=== PATIENT | female | born 1970 | race Caucasian/White ===

== ENCOUNTER 2019-05-11 19:34 | Emergency (ER) | payer BC ==
[2019-05-11 20:27] VITALS: BP 110/71
--- NOTE | 2019-05-11 21:39 | UC ---
FLU HPI - HPI Summary HPI Summary: 49-year-old female presenting with fever, cough, body aches, and decreased appetite 3 days. Patient states she is beginning to feel better and "quite honestly just needs a note to return to work." Patient states she self diagnosed herself with the flu 3 days ago. States symptoms are gradually improving. States her fever broke today. Did have fevers up to 102. Denies nausea and vomiting. Denies shortness of breath and wheezing. Taking OTC cough and cold medications for symptom relief. - History of Current Complaint Chief Complaint: UCGeneralIllness Stated Complaint: GENERAL Hx Obtained From: Patient Hx Last Menstrual Period: 2 wks ago Pain Intensity: 0 Pain Scale Used: 0-10 Numeric - Allergy/Home Medications Allergies/Adverse Reactions: Allergies Allergy/AdvReac Type Severity Reaction Status Date / Time aspirin Allergy Unknown Verified 05/11/19 20:16 Reaction Details Sulfa (Sulfonamide Allergy Joint Pain Verified 05/11/19 20:16 Antibiotics) Home Medications: Home Medications Cetirizine* [ZyrTEC*] 10 mg PO QAM 02/25/15 [History Confirmed 05/11/19] Ibuprofen TAB* [Advil TAB*] 600 mg PO Q6H PRN 02/25/15 [History Confirmed ] Multivitamins/Minerals TAB* [Thera M Plus TAB*] 1 tab PO QAM 02/25/15 [History Confirmed 05/11/19] Omeprazole CAP (NF) [PriLOSEC CAP*] 20 mg PO QAM 02/25/15 [History Confirmed 04/30] Phenylephrine/Dm/Acetaminop/GG [Severe Cold-Flu Caplet] 1 each PO DAILY PRN 04/30 [History Confirmed 05/11/19] Potassium/Calcium/Magnes/Manga [Emergen-C Electro Mix] 1 ligia PO DAILY PRN [History Confirmed 05/11/19] PMH/Surg Hx/FS Hx/Imm Hx - Surgical History Surgical History: None - Family History Known Family History: Positive: Non-Contributory - Social History Alcohol Use: Rare Substance Use Type: None Smoking Status (MU): Current Every Day Smoker Type: Cigarettes Amount Used/How Often: 1/2 PPD Length of Time of Smoking/Using Tobacco: 19 Years Have You Smoked in the Last Year: Yes Household Exposure Type: Cigarettes - Immunization History Most Recent Influenza Vaccination: Not the Season Most Recent Tetanus Shot: 11/04/10 Review of Systems All Other Systems Reviewed And Are Negative: Yes Constitutional: Positive: Fever, Fatigue Respiratory: Positive: Cough. Negative: Shortness Of Breath Cardiovascular: Positive: Negative Gastrointestinal: Positive: Negative Musculoskeletal: Positive: Myalgia Neurological/Mental Status: Positive: Negative Physical Exam - Summary Physical Exam Summary: Vital Signs Reviewed: Yes A+Ox3, no distress, fatigued Eyes: Conjunctiva Clear ENT: Hearing grossly normal, TM x 2 clear, moist, uvula midline, no exudate, no erythema Neck: Positive: Supple Respiratory: Positive: No respiratory distress, No accessory muscle use + CTA throughout no w/r Cardiovascular: RRR nl s1, s2 no m/r Musculoskeletal Exam: LEYVA x 4 without difficulty Neurological: Positive: Alert Psychological: Positive: age appropriate behavior Skin: Positive: no rash, no ecchymosis Vital Signs: Initial Vital Signs Temp 98.3 F 05/11/19 20:23 Pulse 91 05/11/19 20:23 Resp 16 05/11/19 20:23 BP 110/71 05/11/19 20:23 Pulse Ox 95 05/11/19 20:23 Flu Course/Dx - Course Course Of Treatment: Patient declined flu test. Discussed viral illness and instructed to continue with symptomatic treatment and increase fluid intake. Instructed to follow up with pcp for persistent symptoms. Patient voiced understanding and agreed with treatment plan. - Differential Dx/Diagnosis Differential Diagnosis/HQI/PQRI: Influenza, Upper Respiratory Infection Provider Diagnosis: Flu-like symptoms Discharge ED - Sign-Out/Discharge Documenting (check all that apply): Patient Departure All imaging exams completed and their final reports reviewed: No Studies - Discharge Plan Condition: Stable Disposition: HOME Patient Education Materials: Influenza (ED) Forms: *Work Release Referrals: [facility] [Outside] - If Needed Additional Instructions: Your symptoms are likely caused by the flu. You may continue to take over the counter cold and flu medication as directed. Follow up with the [facility] listed below if your symptoms do not improve within 5-7 days. Go to the emergency room if you experience any new or worsening symptoms. - Billing Disposition and Condition Condition: STABLE Disposition: Home - Attestation Statements Provider Attestation: This patient was not seen by me. I was available for consult. Chart reviewed. MARNIE
== END 2019-05-11 21:25 | disposition home or self-care (01) ==
LOC: UCCORT 19:34
DX: R05 Cough (principal); R50.9 Fever, unspecified; M79.10 Myalgia, unspecified site; R53.83 Other fatigue; F17.210 Nicotine dependence, cigarettes, uncomplicated; Z88.2 Allergy status to sulfonamides; Z88.6 Allergy status to analgesic agent
CPT/HCPCS: 99201; G0463